=== PATIENT | male | born 1935 | race Caucasian/White ===

== ENCOUNTER 2018-02-11 19:23 | Inpatient (IN) | payer OTHER, MEDICARE ==
[~2018-02-11] VITALS: Ht 170.2 cm; Wt 90.7 kg
[~2018-02-11 19:23] MED LIST: ALLOPURINOL300 M1 PO; ASPIRIN81 M4 PO; ELIQUIS5 M1 PO; FINASTERIDE5 M1 PO; METOPROLOL TART25 M1 PO; MULTIVITAMINS1 EAC9 PO; SERTRALINE HCL50 MG PO; TAMSULOSIN HCL0.4 M1 PO; TOPROL XL50 M1 PO
--- NOTE | 2018-02-11 19:44 | ED CARDIAC/CP/PALPITATIONS ---
History of Present Illness General Chief Complaint: Chest Pain Stated Complaint: CP, SOB, TIREDNESS, TACHY? Source: patient, family, old records Exam Limitations: no limitations Vital Signs & Intake/Output Vital Signs & Intake/Output Vital Signs Date Time Temp Pulse Resp B/P B/P Pulse O2 O2 Flow FiO2 Mean Ox Delivery Rate 02/13 1354 98 96/70 02/13 1129 88 96/60 02/13 1115 88 96/60 92 Room Air ED Intake and Output 02/14 0000 02/13 1200 Intake Total 590 440 Output Total 250 3075 Balance 340 -2635 Intake, IV 30 Intake, Oral 560 440 Number 1 Bowel Movements Output, Urine 250 3075 Allergies Coded Allergies: NO KNOWN ALLERGIES (01/13/16) Reconcile Medications Allopurinol 300 MG TABLET 1 TAB PO DAILY GOUT (Reported) Apixaban (Eliquis) 5 MG TABLET 1 TAB PO BID A. Fib Diltiazem HCl (Diltiazem 12HR ER) 120 MG CAP.ER.12H 1 CAP PO DAILY HR . Finasteride 5 MG TABLET 1 TAB PO DAILY BPH (Reported) Furosemide 40 MG TABLET 1 TAB PO DAILY Diuresis . Metoprolol Succ XL (Toprol Xl) 50 MG TAB 1 TAB PO DAILY BLOOD PRESSURE ( Reported) Multiple Vitamin (Multivitamins) 1 EACH TABLET 1 TAB PO DAILY SUPPLEMENT ( Reported) Sertraline HCl 50 MG TABLET 1 TAB PO DAILY DEPRESSION (Reported) Solifenacin Succinate (Vesicare) 5 MG TABLET 1 TAB PO DAILY BLADDER (Reported ) Tamsulosin HCl 0.4 MG CAP.ER.24H 1 CAP PO DAILY BPH (Reported) Triage Note: PT FROM HOME C/O SOB AND TACHY X3-4 DAYS. PTS SON STATES THAT PT HAS BEEN COMPLAINING OF LETHARGY ,SOB, AND DECREASED SOB THE PAST FEW DAYS. PT STATED PAIN IN HIS ABD THE PAST FEW DAYS, DENIES CP, ARM NUMBNESS/TINGLING. PT HAS HX OF AFIB COMPLIANT WITH MEDICATION PER SON, PTS HR IN TRIAGE 138, 02 ON RA 93%. EKG COMPLETED, PT TO RM 7. Triage Nurses Notes Reviewed? yes HPI: 83M PMH HTN, T2DM, HLD, paroxysmal atrial fibrillation on Eliquis, brought in by son with reports of being weak, fatigued, and not quite himself for the past 3 days. At baseline, patient lives alone, cooks, takes care of himself, and drives. For the past 3 days he has been mostly sleeping and has been unable to care for himself. Son is giving most of the history. Per son, the patient is not confused but he is not himself. The patient denies any pain or discomfort. He denies fever, chills, n/v/d, chest pain, palpitations, SOB, cough, abdominal pain, diarrhea, dysuria. His HR was measured by son as 130's at home, found to be in 150's and afib here. BP stable. Past History Travel History Traveled to [place] past 21 day No Medical History Any Pertinent Medical History? see below for history Neurological: NONE Cardiovascular: AFIB, hypertension Renal: benign prost hyperplasia Psychiatric: depression Cancer(s): prostate cancer History of MRSA: No History of VRE: No History of CDIFF: No Surgical History Surgical History: non-contributory Psychosocial History Who do you live with Patient/Self Services at Home None What is your primary language [facility] Tobacco Use: Quit >30 days ago Family History Hx Contributory? No Review of Systems Review of Systems Constitutional: Reports: no symptoms. EENTM: Reports: no symptoms. Respiratory: Reports: no symptoms. Cardiovascular: Reports: no symptoms. GI: Reports: no symptoms. Genitourinary: Reports: no symptoms. Musculoskeletal: Reports: no symptoms. Skin: Reports: no symptoms. Neurological/Psychological: Reports: no symptoms. Hematologic/Endocrine: Reports: no symptoms. Immunologic/Allergic: Reports: no symptoms. All Other Systems: Reviewed and Negative Physical Exam Physical Exam General Appearance: well developed/nourished, mild distress Head: atraumatic, normal appearance Eyes: Bilateral: normal appearance. 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 No CVA/TIA Diagnosis No Sepsis Present: No Sepsis Focused Exam Completed? No Progress Differential Diagnosis: AMI, atrial fibrillation, costochondritis, musculoskeletal pain, myocarditis, pancreatitis, pericarditis, pneumonia, PUD/ GERD, PVCs/PACs, unstable angina Plan of Care: Orders Procedure Date/time Status Discontinue Nursing Interventi 02/13 1159 Active OXYGEN 02/13 UNK Complete OXYGEN DAILY CHARGE 02/13 UNK Complete Therapeutic Activities 02/13 UNK Complete Gait Training 02/13 UNK Complete Discharge Patient 02/13 UNK Active Nursing Misc 02/13 UNK Active Initial ED EKG: Rapid atrial fibrillation with ST depressions in anterolateral leads Departure Departure Disposition: STILL A PATIENT Condition: Stable Clinical Impression Primary Impression: Rapid atrial fibrillation Secondary Impressions: Delirium Referrals: Shonda MAJOR,Phyllis Sher (PCP/Family) Departure Forms: Customer Survey General Discharge Information Prescriptions: Current Visit Scripts Diltiazem HCl (Diltiazem 12HR ER) 1 CAP PO DAILY #30 CAP . Furosemide 1 TAB PO DAILY #30 TAB . Critical Care Note Critical Care Note Critical Care Time: non-applicable
[2018-02-11] MEDS ORDERED: VESICARE5 M1 PO (19:57)
[2018-02-11 20:01] LABS: ABSOLUTE BASOPHIL COUNT 0 /CUMM (0.0-0.2); ABSOLUTE EOSINOPHIL COUNT 0.1 /CUMM (0.0-0.7); ABSOLUTE GRANULOCYTE CT 10.1 /CUMM (1.4-6.5); ABSOLUTE LYMPH COUNT 1.4 /CUMM (1.2-3.4); ABSOLUTE MONOCYTE COUNT 0.7 /CUMM (0.10-0.60); BASOPHIL % 0.3 % (0.0-2.0); EOSINOPHIL % 0.5 % (0-5); GRANULOCYTE % 82.4 % (42.2-75.2); HEMATOCRIT 51.2 % (42-52); MEAN CORPUSCULAR HGB 30.6 PG (27.0-31.0); MEAN CORPUSCULAR VOLUME 92.8 FL (80.0-94.0); MEAN PLATELET VOLUME 9.1 FL (7.4-10.4); PLATELET COUNT 198 /CUMM (130-400); RBC DISTRIBUTION WIDTH 18.2 % (11.5-14.5); RED BLOOD CELL CT 5.52 /CUMM (4.70-6.10); WHITE BLOOD CELL COUNT 12.2 /CUMM (4.8-10.8)
[2018-02-11 20:09] LABS: PT 29.8 SEC (9.4-12.5); PTT 32 SEC (25-37)
--- NOTE | 2018-02-11 21:20 | RADIOLOGY REPORT ---
EXAMINATION: XR PORTABLE CHEST CLINICAL INFORMATION: Wheezing with rapid A. fib. COMPARISON: Chest radiograph 05/24/2017. TECHNIQUE: Portable frontal view of the chest was obtained. FINDINGS: There is right basilar opacity. The lungs are otherwise clear. The heart is enlarged. The pulmonary vasculature is normal. There are atherosclerotic changes of the thoracic aorta. Minimal rightward shift of the mediastinum. No acute osseous finding. IMPRESSION: Right basilar opacity which favors atelectasis given the minimal rightward mediastinal shift. Superimposed pleural effusion or pneumonia is not excluded. Mild cardiomegaly.
--- NOTE | 2018-02-11 21:40 | History & Physical ---
Jayda Alejo MD,[facility] 02/11/18 2133: General Information and HPI MD Statement: I have seen and personally examined ELEUTERIO LOVE and documented this H&P. The patient is a 83 year old M who presented with a patient stated chief complaint of [shortness of breating and fatigue]. Source of Information: patient, family, old records Exam Limitations: language barrier History of Present Illness: Patient is 83 y M with PMH of HTN, parox Afib (on Eliquise), T2DM (no medication , diet controlled), BPH, HLP, gout, arthiritis, depression presented to the ED with CC of SOB and palpitation. Patient is Trinidadian speaker, son was at the bedside contributing in history taking. Patient noted for the last 3-4 days he was feeling more fatigued and tired, even with minimal activity. He noted that this was also associated with SOB, cough and congestion but had no sputum. This is detoriation to his base line whe he is able to do ADL. He also noted swelling of bialteral LE which is new to him. He also has lower abdomen pain and distention for the last 3 days. He denied any chest pain, orthopnea, but reported poor appetite. He follows Dr. Castelan for his cardiac problems. He denied any upper respiratory tract infection, he denied sick contact. Patient was last admitted to in May 2017 for Afib with RVR, was converted spontanously to normal sinus and was discharged on Eliquis and metoprolol. Echocardiogram showed EF >60% and some diastolic dysfunction. He was completely symptomatically free after discharge. Allergies/Medications Allergies: Coded Allergies: NO KNOWN ALLERGIES (01/13/16) Past History Travel History Traveled to [place] past 21 day No Medical History Neurological: NONE Cardiovascular: AFIB, hypertension Renal: benign prost hyperplasia Psychiatric: depression Cancer(s): prostate cancer History of MRSA: No History of VRE: No History of CDIFF: No Surgical History Surgical History: non-contributory Past Family/Social History Psychosocial History Who Do You Live With? self Services at Home: None Primary Language: Greenlandic Functional Ability ADLs Independent: dressing, eating, toileting, bathing. Ambulation: independent IADLs Independent: shopping, housework, finances, food prep, telephone, transportation , medication admin. Review of Systems Review of Systems Constitutional: Reports: see HPI. Exam & Diagnostic Data Last 24 Hrs of Vital Signs/I&O Vital Signs Date Time Temp Pulse Resp B/P B/P Pulse O2 O2 Flow FiO2 Mean Ox Delivery Rate 02/12 0014 96 Nasal 2.0L Cannula 02/11 2355 97.5 84 26 112/68 96 02/11 2320 97.8 86 20 110/75 96 Nasal 1.0L Cannula 02/11 2305 94 Nasal 1.0L Cannula 02/11 2228 97.6 91 18 124/74 95 Room Air 02/11 2150 98.0 148 18 129/92 02/11 2134 98.0 148 18 129/92 91 Room Air 02/11 2025 96.2 144 18 134/99 02/11 2025 144 134/99 02/11 1933 96.2 138 18 132/88 93 Room Air Intake & Output 02/12 0800 02/12 0000 02/11 1600 Intake Total 500 Output Total 90 Balance 410 Intake, IV 500 Output, Urine 90 Patient 200 lb 201 lb Weight Weight Bed scale Reported by Patient Measurement Method Physical Exam General Appearance Alert, Oriented X3, Cooperative, No Acute Distress Skin No Significant Lesion Skin Temp/Moisture Exam: Warm/Dry Sepsis Skin Exam (color): Normal for Ethnicity HEENT Atraumatic, EOMI Neck JVD distansion Cardiovascular Normal S1, Normal S2, irreg irreg Lungs bilateral wheezing Abdomen Soft, distanded, no tenderness, no RUQ tenderness, HJR positive Extremities bilateral LE edema, 2-3 Last 24 Hrs of Labs/Cristofer: Laboratory Tests 02/11/182255: Urine Color YEL, Urine Clarity CLEAR, Urine pH 6.0, Ur Specific [place] >= 1.030 , Urine Protein TRACE H, Urine Ketones NEG, Urine Nitrite NEG, Urine Bilirubin NEG@ICTO, Urine Urobilinogen 1.0, Ur Leukocyte Esterase NEG, Ur Microscopic SEDIMENT EXAMINED, Urine RBC RARE, Urine WBC RARE, Ur Epithelial Cells RARE, Urine Bacteria RARE H, Urine Mucus RARE, Urine Hemoglobin NEG, Urine Glucose NEG 02/11/18 1949: Anion Gap 15, Estimated GFR 58 L, BUN/Creatinine Ratio 26.7 H, Glucose 188 H, Calcium 9.1, Phosphorus 4.7 H, Magnesium 1.8, Total Bilirubin 2.0 H, AST 48, ALT 73 H, Alkaline Phosphatase 137 H, Troponin I < 0.01, Qev-A-Wibpkvmjitb Pept 3560 H, Total Protein 6.0 L, Albumin 3.2 L, Globulin 2.8, Albumin/ Globulin Ratio 1.1, TSH 0.783, Free T4 1.04, PT 29.8 H, INR 2.71 H, APTT 32, D -Dimer High Sensitivty 289 H, CBC w Diff NO MAN DIFF REQ, RBC 5.52, MCV 92.8, MCH 30.6, MCHC 33.0, RDW 18.2 H, MPV 9.1, Gran % 82.4 H, Lymphocytes % 11.3 L , Monocytes % 5.5, Eosinophils % 0.5, Basophils % 0.3, Absolute Granulocytes 10.1 H, Absolute Lymphocytes 1.4, Absolute Monocytes 0.7 H, Absolute Eosinophils 0.1, Absolute Basophils 0 Microbiology 02/12 55 BLOOD: Blood Culture - ORD 02/12 55 BLOOD: Blood Culture - ORD 02/12 54 LOWER RESP: Respiratory Culture - ORD 02/12 54 LOWER RESP: Gram Stain - ORD 02/12 2256 URINE ROUT: Urine Culture - RECD 02/11 2209 UPPER RESP: Surveillance Culture - ORD 02/11 2209 GI: Surveillance Culture - ORD Assessment/Plan Assessment: Patient is 82 y M presented with SOB, weakness Palpitation, increased LE swelling PMH of HTN, parox Afib (on Eliquise), T2DM (no medication, diet controlled), BPH , HLP, gout, arthiritis, depression presented to the ED with CC of SOB and palpitation. VS, Ph Ex at admission: Pulse rate 138, no fever, BP 134/99, saturating fairly in room temperature EKG: afib Labs at admission: WBC 12.2, Hgb 16.9 Bicarbonate 19, creatinine 1.2, BUN 32, BUN/creatinine ratio 26.7, total bilirubin 2, ALT 73, alkaline phosphatase 137, INR 2.7 UA pending Imagings at admission: Chest x-ray: Right basilar opacity which favors atelectasis given the minimal rightward mediastinal shift. Superimposed pleural effusion or pneumonia is not excluded. Mild cardiomegaly. Abd CT: 1. Equivocal mural indistinctness of a distended gallbladder without discrete gallstones demonstrated. Consider correlation with ultrasound to evaluate for early cholecystitis. This is a borderline finding. 2. No biliary ductal dilatation. 3. Moderate right and small left pleural effusions. Adjacent basilar atelectasis. 4. Small volume of ascites. 5. A few hypodense hepatic lesions, the largest of which is consistent with a hepatic cyst. 6. Tiny punctate nonobstructing calculus in the lower pole of the left kidney. A large simple cyst extends from the left [id number] kidney. 7. Diverticulosis without evidence of diverticulitis. 8. Other findings as above. 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 Atrial fibrillation with RVR Core Measures/Misc (05/21) Acute Coronary Syndrome ACS Diagnosis: No Congestive Heart Failure Congestive Heart Failure Diagnosis Yes (af related) Last Known EF % 60 Cerebrovascular Accident CVA/TIA Diagnosis: No VTE (View Protocol) VTE Risk Factors Age>40 No Mechanical VTE Prophylaxis d/t N/A MechProphylax Ordered No VTE Pharm Prophylaxis d/t NA PharmProphylax ordered Sepsis (View protocol) Sepsis Present: No If YES complete Sepsis Event Note If YES complete Sepsis Event Note Fritz Potts 02/11/18 5332: General Information and HPI Allergies/Medications Home Med list Allopurinol 300 MG TABLET 1 TAB PO DAILY GOUT (Reported) Apixaban (Eliquis) 5 MG TABLET 1 TAB PO BID A. Fib Diltiazem HCl (Diltiazem 12HR ER) 120 MG CAP.ER.12H 1 CAP PO DAILY HR . Finasteride 5 MG TABLET 1 TAB PO DAILY BPH (Reported) Furosemide 40 MG TABLET 1 TAB PO DAILY Diuresis . Metoprolol Succ XL (Toprol Xl) 50 MG TAB 1 TAB PO DAILY BLOOD PRESSURE ( Reported) Multiple Vitamin (Multivitamins) 1 EACH TABLET 1 TAB PO DAILY SUPPLEMENT ( Reported) Sertraline HCl 50 MG TABLET 1 TAB PO DAILY DEPRESSION (Reported) Solifenacin Succinate (Vesicare) 5 MG TABLET 1 TAB PO DAILY BLADDER (Reported ) Tamsulosin HCl 0.4 MG CAP.ER.24H 1 CAP PO DAILY BPH (Reported) Core Measures/Misc (05/21) Sepsis (View protocol) If YES complete Sepsis Event Note If YES complete Sepsis Event Note Resident Review Statement Resident Statement: examined this patient, discussed with technology internship, agreed with technology internship Other Findings: Mr. Love is a 83-year-old male with past medical history of hypertension, type 2 diabetes mellitus, hyperlipidemia, paroxysmal atrial fibrillation on Eliquis, BPH, depression, gout,previous history of prostate cancer is brought in by son with reports of being weak, fatigued and not quite himself for 3 days prior to presentation. At baseline patient lives alone, cooks and takes cares of himself and drives. Apparently for last 3 days he has mostly been sleeping, lethargic and unable to take care of himself. As per the son, he doesn't seem to be himself. His heart rate as measured at home was in 130s and also at times in 150s. Heart rate has been running high in the 130s to 140s for last 3-4 days. Patient's son was at bedside and was contributing to history taking, as Mr. Rodriguez only converses in uruguayan. It seems that lately since last few days he had been very tired, and was having worsening shortness of breath even when doing small work like tying his shoes. He has also noted recent bilateral leg swelling, which is relatively new, has never happened before. He also feels mild vague abdominal pain and feels that his abdomen has been much more distended for past 3 days. He also endorses some increased coughing along with sputum production which is white in color. He quit smoking long ago in 1965, was a social drinker however does not drink alcohol anymore. vitals on presentation is temperature was 96.2, pulse was 144, respiration of 18 , blood pressure of 134/99, he was saturating 93% on room air. Home meds : he has been taking allopurinol 300 mg once daily, Eliquis 500 mg 1 tablet twice a day, finasteride 5 mg once daily, metoprolol XL 50 mg once daily, multivitamin once daily, sertraline 50 mg once daily, Vesicare 5 mg once daily, tamsulosin 0.4 mg once daily. Relevant labs white count of 12.2, H/H of 16.9/51.2, platelet of 198. PT of 29.8, INR of 2.71, d-dimer of 289. Sodium of 141, potassium of 4.7, anion gap of 15, bicarbonate of 19, BUN/ creatinine of 32/1.2 (line creatinine 1.0) mod total bilirubin of 2.0, ALT of 73 , AST of 48, alkaline phosphatase of 137. Total protein of 6.0, albumin of 3.2. First set of troponin negative at less than 0.01. Chest X-ray showed right basilar opacity, favoring atelectasis with minimal rightward mediastinal shift, there might be a superimposed pleural effusion or pneumonia, mild cardiomegaly present. CT abdomen and pelvis showed a few scattered hypodense hepatic lesions, distended gallbladder with questionable mural indistinctness, with no biliary ductal dilation or gallstones, small volume of ascites, moderate light and small left pleural effusion. Large simple cyst extending from the left mid to lower kidney. EKG showed atrial fibrillation with a rate of 159, QTC of 489, T-wave inversion in V4, V5, V1 present on the previous EKG. His last admission was in May 2017, was treated for paroxysmal atrial fibrillation with RVR and was discharged on Eliquis 5 mg twice daily. His last echocardiogram was 05/24/2017 with moderate concentric left ventricular hypertrophy, left ventricular EF greater than 60%, restrictive left ventricular inflow pattern consistent with diastolic dysfunction. Problem list along with assessment and plan 1. Atrial fibrillation with rapid ventricular rate * Continue to monitor on telemetry, we will start Cardizem 30 every 6 for now, continue anticoagulation with Eliquis, previous echo was in May 2017, repeat echo per cardiology, cardiology consult in a.m., patient is on metoprolol XL 50 mg daily, will continue metoprolol from a.m., further determine the need for Cardizem depending on heart rate with target heart rate less than 100. #2 Heart failure with preserved EF. * Continue to monitor intake and output, continue daily weight checks, Place Foleys, patient received 1 time of IV 40 mg Lasix, has bilateral lower extremity edema (new), will continue 40 mg IV Lasix twice daily for now, consider repeating echo especially after newer symptoms of lower extremity edema up to the lower abdomen, continue to monitor electrolytes while on Lasix, repeat as needed. #3 Elevated ALT, elevated bilirubin and alkaline phosphatase. * CT abdomen and pelvis showed distended gallbladder, however there was no evidence of acute inflammation, gall stones,continue to repeat LFTs in the morning, check INR, obtain ultrasound of the right upper quadrant in am. #4 History of gout. * Continue allopurinol 30 mg daily. #5 History of BPH. * Continue finasteride 5 mg daily, continue tamsulosin 0.4 mg daily, continue Vesicare 5 mg daily. #6 Depression. * Continue sertraline 50 mg daily. #7 DM-2 * diet controlled, last hba1c 6.4 * ct to monitor FS Patient is full code. CHF diet. DVT prophylaxis with Eliquis. Pain management with Tylenol. Chito MAJOR, [facility] 02/11/18 2212: Core Measures/Misc (05/21) Sepsis (View protocol) If YES complete Sepsis Event Note If YES complete Sepsis Event Note Attending MD Review Statement Attending Statement Attending MD Statement: examined this patient, discuss w/resident/PA/VARNISH REMOVER, agreed w/resident/PA/VARNISH REMOVER, discussed with family, reviewed images, amended to note Attending Assessment/Plan: 83 yo primarily Trinidadian speaking male with h/o paroxysmal Afib (diagnosed May 2017) on Eliquis, HTN, diet controlled diabetes, gout, depression, is brought in for 3-day h/o increasing fatigue, weakness and exertional dyspnea. Patient lives alone, is independent with daily activities, cooks and drives as well. However, for the past 3 days he has been feeling 'winded' with minimal exertion like wearing his clothes or tieing his shoe lace. He reports a mild cough with clear to white phlegm, but denies chest pain, palpitations, fever or chills. He c/o lower abdominal discomfort but no nausea, vomiting, diarhea, constipation or urinary symptoms. Son reports that patient is forgetful but not really confused. When son checked patient's HR it was in the 130's so he brought him to the hospital. Vitals: afebrile, HR 140-150's, BP 134/99, sats 90% RA --> 95% on 2L. Exam: AAO, in moderate respiratory distress, moist oral mucosa, JVD++, Chest b/l reduced air entry with basilar crackles and wheeze noted, Heart S1S2 irregularly irregular, Abd soft, distended, non tender, LE: 3+++ pitting edema, pulses felt. Labs: WBC 12.2, Plt 198, INR 2.71, D-dimer 289, bicarb 19, BUN 32, Creat 1.2, glucose 188, T. Bili 2.0, AST 48, ALT 73, Alk phos 137, trop neg, proBNP 3560, TSH and free T4 normal. UA clear. CXR: right basilar opacity which favors atelectasis, superimposed pleural effusion or pneumonia not excluded. CT abd/pelvis: moderate right and small left pleural effusions, with basilar atelectasis, equivocal mural indistinctiveness of distended gallbladder without gallstones, small volume of ascites, hepatic cysts, nonbostructive renal caluclus. EKG: atrial fibrillation @ 159, LAD, TWI in I, aVL, V4-6 (new), Qtc 489. Echo (2017): EF > 60%, restrictive left ventricular inflow pattern consistent with diastolic dysfunction, moderate concentric LVH. Patient received IV metoprolol after which HR dropped only transiently and went back up to 140's. Loading dose of verapamil was given with HR dropping down to 80-100's. Plan was to initiate verapamil drip but this was not required as patient stayed in high 80's thereafter, so patient was admitted to Telemetry instead. Assessment and plan: 1. Atrial fribrillation with rapid ventricular response 2. Acute decompensated congestive heart failure (diastolic vs systolic) 3. Rate related EKG changes TWI in lateral leads 4. Essential hypertension 5. Abnormal LFTs possibly 2/2 congestive hepatopathy, however we should rule out GB disease given CT e/o GB distension 6. Leukocytosis -reactive - Admit to Telemetry - Watch for arrhythmias - Strict I/O's, daily weights - IV lasix 40 BID - Obtain echo cardiogram - Serial EKG and troponin to rule out ACS - Cardio consult (Dr. Castelan) - Initiate cardizem 30 Q8 white monitoring HR and uptitrate based on HR - Resume metoprolol XL in AM - Fractionate the bilirubin - Obtain RUQ ultrasound in AM to rule out GB disease - Trend LFTs - Resume home meds eliquis, allopurinol, finastaride, sertraline, vesicare and flomax. - PT eval, possible need for STR DVT ppx Eliquis. Full code.
--- NOTE | 2018-02-11 22:12 | CT SCAN REPORT ---
EXAMINATION: CT ABDOMEN AND PELVIS WITHOUT CONTRAST CLINICAL INFORMATION: Altered mental status. Elevated bilirubins and LFTs. COMPARISON: None TECHNIQUE: Multidetector volumetric imaging was performed from the superior aspect of the liver through the pubic symphysis. Sagittal and coronal reformatted images were obtained on the technologist's workstation. DLP: 1138 mGy-cm FINDINGS: LUNG BASES: Moderate right and small left pleural effusions with adjacent basilar atelectasis. PERITONEAL CAVITY: Small volume of ascites. LIVER, GALLBLADDER, AND BILIARY TREE: There are a few scattered hypodense hepatic lesions, including a lobulated 3.9 cm lesion within the superior aspect of segments 8 and 4, favored to represent cysts. No convincing suspicious hepatic mass lesion. No significant biliary ductal dilatation. The gallbladder is distended, with questionable mural indistinctness. No discrete gallstones demonstrated. PANCREAS: Unremarkable. SPLEEN: Unremarkable. ADRENAL GLANDS: Unremarkable. KIDNEYS AND URETERS: There is a 13.7 cm cyst without suspicious features off of the left kidney. No hydronephrosis. There is a tiny punctate calculus in the lower pole of the left kidney. No other renal or ureteral calculi. BLADDER: Partially distended bladder without focal abnormality. GASTROINTESTINAL TRACT: Bowel gas pattern is nonobstructive. No evidence of acute bowel inflammation. There is colonic diverticulosis without evidence of diverticulitis. The appendix is unremarkable. ABDOMINAL WALL: No significant hernia is appreciated. LYMPH NODES: No bulky adenopathy demonstrated. VASCULAR: Scattered atherosclerotic disease including coronary artery calcification. PELVIC VISCERA: Ascites tracks into the pelvis. No significant prostatomegaly. Seminal vesicles are unremarkable. OSSEOUS STRUCTURES: No acute osseous abnormalities. Multilevel degenerative changes of the spine. IMPRESSION: 1. Equivocal mural indistinctness of a distended gallbladder without discrete gallstones demonstrated. Consider correlation with ultrasound to evaluate for early cholecystitis. This is a borderline finding. 2. No biliary ductal dilatation. 3. Moderate right and small left pleural effusions. Adjacent basilar atelectasis. 4. Small volume of ascites. 5. A few hypodense hepatic lesions, the largest of which is consistent with a hepatic cyst. 6. Tiny punctate nonobstructing calculus in the lower pole of the left kidney. A large simple cyst extends from the left [id number]-[id number] kidney. 7. Diverticulosis without evidence of diverticulitis. 8. Other findings as above.
--- NOTE | 2018-02-11 22:14 | Admission Certification ---
Admission Certification Certification Statement - As attending physician, I certify that at the time of - admission, based on clinical presentation, severity of - symptoms, need for further diagnostic testing and - therapeutic interventions, and risk of adverse outcomes - without in-hospital treatment, in my clinical assessment, - this patient requires an acute hospital stay for a minimum - of two nights or longer. I have also considered psychsocial - factors such as support system, advanced age, financial - issues, cognitive issues, and failed out-patient treatments, - past re-admission history, safety of patient, and lack of - compliance as applicable. Specific rationale supporting this admission is: Atrial fibrillation with rapid ventricular response, aucte decompensated congestive heart failure.
[2018-02-11 23:55] VITALS: BP 112/68
[2018-02-12 07:02] VITALS: BP 124/80
--- NOTE | 2018-02-12 07:58 | PN- Housestaff ---
See Addendum Subjective Follow-up For: Atrial fibrillation with RVR, tachycardia induced cardiomyopathy Tele-Events Since Last Visit: Atrial fibrillation, [address] Subjective: No overnight events. Patient says he feels better with no chest pain or shortness of breath. He has no pain. No other complaints. Review of Systems Constitutional: Reports: no symptoms. EENTM: Reports: no symptoms. Cardiovascular: Reports: no symptoms. Respiratory: Reports: no symptoms. Gastrointestinal: Reports: no symptoms. Genitourinary: Reports: no symptoms. Musculoskeletal: Reports: no symptoms. Skin: Reports: no symptoms. Neurological/Psychological: Reports: no symptoms. Hematologic/Endocrine: Reports: no symptoms. Immunologic/Allergic: Reports: no symptoms. Objective Last 24 Hrs of Vital Signs/I&O Vital Signs Date Time Temp Pulse Resp B/P B/P Pulse O2 O2 Flow FiO2 Mean Ox Delivery Rate 02/12 0702 97.4 88 24 124/80 94 Nasal Cannula 02/12 0601 103 120/85 02/12 0101 95 Nasal 2.0L Cannula 02/12 0014 96 Nasal 2.0L Cannula 02/11 2355 97.5 84 26 112/68 96 02/11 2320 97.8 86 20 110/75 96 Nasal 1.0L Cannula 02/11 2305 94 Nasal 1.0L Cannula 02/11 2228 97.6 91 18 124/74 95 Room Air 02/11 2150 98.0 148 18 129/92 02/11 2134 98.0 148 18 129/92 91 Room Air 02/11 202 96.2 144 18 134/99 02/11 202 144 134/99 02/11 1933 96.2 138 18 132/88 93 Room Air Intake & Output 02/12 0800 02/12 0000 02/11 1600 Intake Total 500 Output Total 1700 90 Balance -1700 410 Intake, IV 500 Output, Urine 1700 90 Patient 90.718 kg 91.2 kg Weight Weight Bed scale Reported by Patient Measurement Method Physical Exam General Appearance: Alert, Oriented X3, Cooperative, No Acute Distress Cardiovascular: irregular Lungs: Clear to Auscultation Abdomen: Normal Bowel Sounds, Soft, No Tenderness Extremities: 2+ pitting edema Current Medications: Current Medications Sig/John Start time Last Medication Dose Route Stop Time Status Admin Allopurinol 300 MG DAILY 02/12 09 AC PO Apixaban 5 MG BID 02/12 900 AC PO Apixaban 5 MG BID 02/12 0057 DC PO Diltiazem HCl 30 MG Q8 02/12 600 AC 02/12 PO 0601 Diltiazem HCl 30 MG Q6 02/12 0300 DC PO Finasteride 5 MG DAILY 02/12 900 AC PO Furosemide 40 MG 7:30 AM, & 4:30 PM 02/12 07 AC IV Furosemide 0 .STK-MED ONE 02/11 224 DC IV Furosemide 40 MG ONCE ONE 02/11 2215 DC 02/11 IV 02/12 2216 2304 Metoprolol Succinate 50 MG DAILY 02/12 900 AC PO Metoprolol Tartrate 0 .STK-MED ONE 02/11 2019 DC IV Metoprolol Tartrate 5 MG ONCE ONE 02/11 1945 DC 02/11 IV 02/11 Multivitamins 1 TAB DAILY 02/12 900 AC PO Oxybutynin Chloride 5 MG DAILY 02/12 900 AC PO Sertraline HCl 50 MG DAILY 02/12 900 AC PO Sodium Chloride 500 ML BOLUS ONE 02/11 1945 DC 02/11 IV 02/11 Tamsulosin HCl 0.4 MG DAILY 02/12 900 AC PO Verapamil HCl 50 MG CONTINOUS INFUSION 02/11 223 DC Sodium Chloride 80 ML IV Verapamil HCl 5 MG ONE ONE 02/11 2100 DC 02/11 IV 02/11 2101 2150 Last 24 Hrs of Lab/Cristofer Results Last 24 Hrs of Labs/Mics: Laboratory Tests 02/12/18 0130: Troponin I < 0.01 02/11/18 2256: Urine Color YEL, Urine Clarity CLEAR, Urine pH 6.0, Ur Specific [place] >= 1.030 , Urine Protein TRACE H, Urine Ketones NEG, Urine Nitrite NEG, Urine Bilirubin NEG@ICTO, Urine Urobilinogen 1.0, Ur Leukocyte Esterase NEG, Ur Microscopic SEDIMENT EXAMINED, Urine RBC RARE, Urine WBC RARE, Ur Epithelial Cells RARE, Urine Bacteria RARE H, Urine Mucus RARE, Urine Hemoglobin NEG, Urine Glucose NEG 02/11/181948: Anion Gap 15, Estimated GFR 58 L, BUN/Creatinine Ratio 26.7 H, Glucose 188 H, Calcium 9.1, Phosphorus 4.7 H, Magnesium 1.8, Total Bilirubin 2.0 H, Direct Bilirubin 0.7 H, AST 48, ALT 73 H, Alkaline Phosphatase 137 H, Troponin I < 0.01, Gji-E-Gqfwghflmyd Pept 3560 H, Total Protein 6.0 L, Albumin 3.2 L, Globulin 2.8, Albumin/Globulin Ratio 1.1, TSH 0.783, Free T4 1.04, PT 29.8 H, INR 2.71 H, APTT 32, D-Dimer High Sensitivty 289 H, CBC w Diff NO MAN DIFF REQ , RBC 5.52, MCV 92.8, MCH 30.6, MCHC 33.0, RDW 18.2 H, MPV 9.1, Gran % 82.4 H, Lymphocytes % 11.3 L, Monocytes % 5.5, Eosinophils % 0.5, Basophils % 0.3, Absolute Granulocytes 10.1 H, Absolute Lymphocytes 1.4, Absolute Monocytes 0.7 H, Absolute Eosinophils 0.1, Absolute Basophils 0 Microbiology 02/12 0200 BLOOD: Blood Culture - RECD 02/12 0130 BLOOD: Blood Culture - RECD 02/124 LOWER RESP: Respiratory Culture - COLB 02/12 54 LOWER RESP: Gram Stain - COLB 02/12 2256 URINE ROUT: Urine Culture - RECD 02/11 2209 UPPER RESP: Surveillance Culture - CAN Cancelled: Cancelled via OE: Per MD Decision 02/11 2209 GI: Surveillance Culture - CAN Cancelled: Cancelled via OE: Per MD Decision Assessment/Plan Assessment: Mr. Quinones is a 83 yo primarily [place]ian speaking male with h/o paroxysmal Afib ( diagnosed May 2017) on Eliquis, HTN, diet controlled diabetes, gout, depression , is brought in for 3-day h/o increasing fatigue, weakness and exertional dyspnea. Problem list: 1. Possible lobar pneumonia 2. Atrial fibrillation with rapid ventricular rate 3. Tachycardia induced cardiomyopathy 4. Transaminitis #Possible lobar pneumonia: Patient presented with shortness of breath in the setting of leukocytosis, hypothermia, and chest x-ray showing right lower lobe opacity possibly consistent with community-acquired pneumonia. -Consider starting ceftriaxone and azithromycin -Cultures -Strep and Legionella antigens #Atrial fibrillation with rapid ventricular rate/Tachycardia induced cardiomyopathy: Patient presented with atrial fibrillation and rapid ventricular rate. Rates are now 80-100, better controlled. -Continue diltiazem 30 mg every 8 hours -Continue metoprolol 50 mg daily -Cardiology recommendations appreciated -TTE -Daily weights, strict I's and O's -Consider further diuresis #Transaminitis: Patient presented with elevated alkaline phosphatase and bilirubin and CT abdomen/pelvis shows questionable cholecystitis. He does not have abdominal pain though. -Ultrasound abdomen -Trend LFTs -N.p.o. pending ultrasound #Chronic medical problems: -Continue other home medications DVT prophylaxis with apixaban N.p.o. pending ultrasound, then CHF diet Full code Problem List: 1. Rapid atrial fibrillation Pain Ratin Pain Location: no Pain Goal: Remain pain free Pain Plan: see a/p Tomorrow's Labs & Rationales: cbc, bep
[2018-02-12 10:02] LABS: ABSOLUTE BASOPHIL COUNT 0 /CUMM (0.0-0.2); ABSOLUTE EOSINOPHIL COUNT 0.1 /CUMM (0.0-0.7); ABSOLUTE GRANULOCYTE CT 10.3 /CUMM (1.4-6.5); ABSOLUTE LYMPH COUNT 1.7 /CUMM (1.2-3.4); ABSOLUTE MONOCYTE COUNT 0.8 /CUMM (0.10-0.60); BASOPHIL % 0.2 % (0.0-2.0); EOSINOPHIL % 0.7 % (0-5); GRANULOCYTE % 79.7 % (42.2-75.2); HEMATOCRIT 50.6 % (42-52); MEAN CORPUSCULAR HGB 30.3 PG (27.0-31.0); MEAN CORPUSCULAR HGB CONC 32.5 G/DL (33.0-37.0); MEAN CORPUSCULAR VOLUME 93.2 FL (80.0-94.0); MEAN PLATELET VOLUME 9.2 FL (7.4-10.4); PLATELET COUNT 183 /CUMM (130-400); RBC DISTRIBUTION WIDTH 18.2 % (11.5-14.5); RED BLOOD CELL CT 5.44 /CUMM (4.70-6.10); WHITE BLOOD CELL COUNT 12.9 /CUMM (4.8-10.8)
--- NOTE | 2018-02-12 10:48 | Cons- Cardiology ---
General Information and HPI Consulting Request Requested By: Lauren Lucas MD Reason for Consult: Atrial fibrillation with a rapid ventricular response. Source of Information: patient, old records Exam Limitations: language barrier History of Present Illness: Mr. Michael Quinones is an 83-year-old male of [place]kin[place] descent with a history of depression, remote tobacco use, hypertension, left ventricular hypertrophy with diastolic dysfunction, diabetes mellitus, gout, benign prostatic hypertrophy, and paroxysmal atrial fibrillation who presented to the ED yesterday, 02/11/2018, with a 3-4 day complaint of shortness of breath, fatigue, and palpitations, as well as, associated abdominal discomfort and was again found to be in atrial fibrillation with a rapid ventricular response, despite adherence to his outpatient medical regimen, according to his son. He was last hospitalized here 05/24-05/26/2017 with "new onset" atrial fibrillation and a rapid ventricular response and spontaneously converted back to sinus rhythm. We have followed up with him on an outpatient basis and have not discovered any further atrial fibrillation since his last hospitalization. At present, he is without complaints and specifically denies any chest discomfort, palpitations, shortness of breath, etc. Allergies/Medications Allergies: Coded Allergies: NO KNOWN ALLERGIES (01/13/16) Home Med List: Allopurinol 300 MG TABLET 1 TAB PO DAILY GOUT (Reported) Apixaban (Eliquis) 5 MG TABLET 1 TAB PO BID A. Fib Finasteride 5 MG TABLET 1 TAB PO DAILY BPH (Reported) Metoprolol Succ XL (Toprol Xl) 50 MG TAB 1 TAB PO DAILY BLOOD PRESSURE ( Reported) Multiple Vitamin (Multivitamins) 1 EACH TABLET 1 TAB PO DAILY SUPPLEMENT ( Reported) Sertraline HCl 50 MG TABLET 1 TAB PO DAILY DEPRESSION (Reported) Solifenacin Succinate (Vesicare) 5 MG TABLET 1 TAB PO DAILY BLADDER (Reported ) Tamsulosin HCl 0.4 MG CAP.ER.24H 1 CAP PO DAILY BPH (Reported) Review of Systems Review of Systems: A 14 point system review was obtained was noncontributory, other than as above. Past History Travel History Traveled to [place] past 21 day No Medical History Blood Transfusion Hx: No Neurological: NONE Cardiovascular: AFIB, hypertension Renal: benign prost hyperplasia Psychiatric: depression Cancer(s): prostate cancer Surgical History Surgical History: non-contributory Psychosocial History Where Do You Live? Home Who Do You Live With? self Services at Home: None Primary Language: Burkinan Smoking Status: Never Smoked Functional Ability ADLs Independent: dressing, eating, toileting, bathing. Ambulation: independent IADLs Independent: shopping, housework, finances, food prep, telephone, transportation , medication admin. Exam & Diagnostic Data Vital Signs and I&O Vital Signs Date Time Temp Pulse Resp B/P B/P Pulse O2 O2 Flow FiO2 Mean Ox Delivery Rate 02/12 08 94 Nasal 2.0L Cannula 02/12 0702 97.4 88 24 124/80 94 Nasal Cannula 02/12 0601 103 120/85 02/12 0101 95 Nasal 2.0L Cannula 02/12 0014 96 Nasal 2.0L Cannula 02/11 2355 97.5 84 26 112/68 96 02/11 2320 97.8 86 20 110/75 96 Nasal 1.0L Cannula 02/11 2305 94 Nasal 1.0L Cannula 02/11 2228 97.6 91 18 124/74 95 Room Air 02/11 2150 98.0 148 18 129/92 02/11 2134 98.0 148 18 129/92 91 Room Air 02/11 2025 96.2 144 18 134/99 02/11 202 144 134/99 02/11 1933 96.2 138 18 132/88 93 Room Air Intake & Output 02/12 1600 02/12 0800 02/12 0000 02/11 1600 02/11 0800 02/11 0000 Intake Total 500 Output Total 1700 90 Balance -1700 410 Intake, IV 500 Output, Urine 1700 90 Patient 200 lb 201 lb Weight Weight Bed scale Reported by Patient Measurement Method Physical Exam: Well-developed, overweight elderly male in no acute distress with nasal oxygen in place. Vital signs: See above. HEENT: Normocephalic, atraumatic, EOMI, slightly dry mucous membranes. Neck: No JVD, no bruits. Lungs: Clear to auscultation. Heart: S1, S2, irregularly, irregular with a grade 1/6 systolic murmur. No gallop or rub appreciated. PMI not well felt. Abdomen: Soft, nontender, positive bowel sounds. Extremities: 1-2+ lateral lower extremity edema. Labs/Cristofer Results: Laboratory Tests 02/12 02/12 02/12 0915 0630 0130 Chemistry Sodium (137 - 145 mmol/L) 142 Potassium (3.5 - 5.1 mmol/L) 4.3 Chloride (98 - 107 mmol/L) 107 Carbon Dioxide (22 - 30 mmol/L) 22 Anion Gap (5 - 16) 13 BUN (9 - 20 mg/dL) 29 H Creatinine (0.7 - 1.2 mg/dL) 1.2 Estimated GFR (>60 ml/min) 58 L Glucose (65 - 99 mg/dL) 120 H Calcium (8.4 - 10.2 mg/dL) 8.9 Phosphorus (2.5 - 4.5 mg/dL) 5.0 H Magnesium (1.6 - 2.3 mg/dL) 1.7 Total Bilirubin (0.2 - 1.3 mg/dL) 1.5 H AST (17 - 59 U/L) 40 ALT (21 - 72 U/L) 71 Troponin I (<0.11 ng/ml) < 0.01 Cancelled < 0.01 Albumin (3.5 - 5.0 g/dL) 3.0 L Hematology CBC w Diff NO MAN DIFF REQ WBC (4.8 - 10.8 /CUMM) 12.9 H RBC (4.70 - 6.10 /CUMM) 5.44 Hgb (14.0 - 18.0 G/DL) 16.4 Hct (42 - 52 %) 50.6 MCV (80.0 - 94.0 FL) 93.2 MCH (27.0 - 31.0 PG) 30.3 MCHC (33.0 - 37.0 G/DL) 32.5 L RDW (11.5 - 14.5 %) 18.2 H Plt Count (130 - 400 /CUMM) 183 MPV (7.4 - 10.4 FL) 9.2 Gran % (42.2 - 75.2 %) 79.7 H Lymphocytes % (20.5 - 51.1 %) 13.3 L Monocytes % (1.7 - 9.3 %) 6.1 Eosinophils % (0 - 5 %) 0.7 Basophils % (0.0 - 2.0 %) 0.2 Absolute Granulocytes (1.4 - 6.5 /CUMM) 10.3 H Absolute Lymphocytes (1.2 - 3.4 /CUMM) 1.7 Absolute Monocytes (0.10 - 0.60 /CUMM) 0.8 H Absolute Eosinophils (0.0 - 0.7 /CUMM) 0.1 Absolute Basophils (0.0 - 0.2 /CUMM) 0 02/11 02/11 5600 4084 Chemistry Sodium (137 - 145 mmol/L) 141 Potassium (3.5 - 5.1 mmol/L) 4.7 Chloride (98 - 107 mmol/L) 107 Carbon Dioxide (22 - 30 mmol/L) 19 L Anion Gap (5 - 16) 15 BUN (9 - 20 mg/dL) 32 H Creatinine (0.7 - 1.2 mg/dL) 1.2 Estimated GFR (>60 ml/min) 58 L BUN/Creatinine Ratio (7 - 25 %) 26.7 H Glucose (65 - 99 mg/dL) 188 H Calcium (8.4 - 10.2 mg/dL) 9.1 Phosphorus (2.5 - 4.5 mg/dL) 4.7 H Magnesium (1.6 - 2.3 mg/dL) 1.8 Total Bilirubin (0.2 - 1.3 mg/dL) 2.0 H Direct Bilirubin (< 0.4 mg/dL) 0.7 H AST (17 - 59 U/L) 48 ALT (21 - 72 U/L) 73 H Alkaline Phosphatase (< 127 U/L) 137 H Troponin I (<0.11 ng/ml) < 0.01 Iwt-P-Lsqniytjbcb Pept (<125 pg/mL) 3560 H Total Protein (6.3 - 8.2 g/dL) 6.0 L Albumin (3.5 - 5.0 g/dL) 3.2 L Globulin (1.9 - 4.2 gm/dL) 2.8 Albumin/Globulin Ratio (1.1 - 2.2 %) 1.1 TSH (0.270 - 4.200 uIU/mL) 0.783 Free T4 (0.85 - 1.93 ng/dL) 1.04 Coagulation PT (9.4 - 12.5 SEC) 29.8 H INR (0.90 - 1.17) 2.71 H APTT (25 - 37 SEC) 32 D-Dimer High Sensitivty (0 - 243 ng/ml) 289 H Hematology CBC w Diff NO MAN DIFF REQ WBC (4.8 - 10.8 /CUMM) 12.2 H RBC (4.70 - 6.10 /CUMM) 5.52 Hgb (14.0 - 18.0 G/DL) 16.9 Hct (42 - 52 %) 51.2 MCV (80.0 - 94.0 FL) 92.8 MCH (27.0 - 31.0 PG) 30.6 MCHC (33.0 - 37.0 G/DL) 33.0 RDW (11.5 - 14.5 %) 18.2 H Plt Count (130 - 400 /CUMM) 198 MPV (7.4 - 10.4 FL) 9.1 Gran % (42.2 - 75.2 %) 82.4 H Lymphocytes % (20.5 - 51.1 %) 11.3 L Monocytes % (1.7 - 9.3 %) 5.5 Eosinophils % (0 - 5 %) 0.5 Basophils % (0.0 - 2.0 %) 0.3 Absolute Granulocytes (1.4 - 6.5 /CUMM) 10.1 H Absolute Lymphocytes (1.2 - 3.4 /CUMM) 1.4 Absolute Monocytes (0.10 - 0.60 /CUMM) 0.7 H Absolute Eosinophils (0.0 - 0.7 /CUMM) 0.1 Absolute Basophils (0.0 - 0.2 /CUMM) 0 Urines Urine Color (YEL,AMB,STR) YEL Urine Clarity (CLEAR) CLEAR Urine pH (5.0 - 8.0) 6.0 Ur Specific [place] (1.001 - 1.035) >= 1.030 Urine Protein (NEG,<30 MG/DL) TRACE H Urine Ketones (NEG) NEG Urine Nitrite (NEG) NEG Urine Bilirubin (NEG) NEG@ICTO Urine Urobilinogen (0.1 - 1.0 EU/dl) 1.0 Ur Leukocyte Esterase (NEG) NEG Ur Microscopic SEDIMENT EXAMINED Urine RBC (0 - 5 /HPF) RARE Urine WBC (0 - 2 /HPF) RARE Ur Epithelial Cells (NONE,FEW) RARE Urine Bacteria (NEG/NONE) RARE H Urine Mucus (FEW,NONE) RARE Urine Hemoglobin (NEG) NEG Urine Glucose (N MG/DL) NEG Diagnostic Data EKG Results 02/12/2018: Atrial fibrillation with a normal mean ventricular response, low frontal lead voltage, abnormal precordial R-wave progression leads V1-V2, and anterolateral nondiagnostic T-wave abnormalities, cannot exclude ischemia. Slower rate went compared to previous tracing from 02/11/2018. CXR Results 02/11/2018: Right basilar opacity which favors atelectasis given the minimal rightward mediastinal shift. Superimposed pleural effusion or pneumonia is not excluded. Mild cardiomegaly. Other Results CT abdomen/pelvis 02/11/2018: 1. Equivocal mural indistinctness of a distended gallbladder without discrete gallstones demonstrated. Consider correlation with ultrasound to evaluate for early cholecystitis. This is a borderline finding. 2. No biliary ductal dilatation. 3. Moderate right and small left pleural effusions. Adjacent basilar atelectasis. 4. Small volume of ascites. 5. A few hypodense hepatic lesions, the largest of which is consistent with a hepatic cyst. 6. Tiny punctate nonobstructing calculus in the lower pole of the left kidney. A large simple cyst extends from the left hfj-ry-qhwel kidney. 7. Diverticulosis without evidence of diverticulitis. 8. Other findings as above. Echocardiogram 05/24/2017: 1. Normal size left ventricle. Moderate concentric left ventricular hypertrophy. No obvious regional wall motion abnormalities. Normal left ventricular ejection fraction visually estimated at >60%. Restrictive left ventricular inflow pattern consistent with diastolic dysfunction. 2. Mild right ventricular dilatation. 3. Mild atrial dilatation. 4. Mild mitral regurgitation. Mild aortic regurgitation. Mild tricuspid regurgitation. Right ventricular systolic pressure estimated at 31 mmHg. Mild pulmonic regurgitation. 5. Mildly dilated ascending aorta. Dilated inferior vena cava. Assessment/Plan Assessment/Plan [id number] w/ hx of depression, remote tob use, HTN, LVH w/ DD, DM T2, gout, BPH , & PAF on NOAC who presented to the ED, 02/11/2018, w/ a 3-4 day c/o SOB, fatigue, & palpitations, as well as, assoc abd discomfort & was again in AF w/ RVR, despite adherence to his OP med regimen, that improved following the administration of IV metoprolol and IV verapamil, but who was also discovered to have new T-wave abnormalities on his ECG, evidence of possible community- acquired PNA, and possible cholecystitis. Recommendations: * Continue on telemetry, follow-up troponins, follow-up ECGs. * Continue on outpatient metoprolol succinate 50 mg daily. * Continue on diltiazem 3 times daily added 02/11/2018. * Continue empiric antimicrobial therapy. * Follow-up cultures. * Repeat CXR. * Repeat echocardiogram to reassess LV function, degree of LVH, degree of diastolic dysfunction, etc. * Consider abdominal ultrasound to evaluate for early cholecystitis, as per radiology. * DVT prophylaxis being addressed by anticoagulation for his AF. Further recommendations will follow, Thank you. Consult Acknowledgment - Thank you for your consult request.
--- NOTE | 2018-02-12 11:29 | ULTRASOUND REPORT ---
EXAMINATION: US ABDOMEN LIMITED CLINICAL INFORMATION: 83-year-old male with elevated liver function tests. Suspected gallbladder disease. COMPARISON: CT of the abdomen and pelvis done without contrast on 02/11/2018. TECHNIQUE: Real-time imaging of the right upper quadrant abdominal viscera. FINDINGS: PANCREAS: Nonvisualized due to overlying bowel gas, accordingly not evaluated. LIVER: The liver is suboptimally visualized, shows mild diffuse heterogeneous echotexture, consistent with diffuse liver disease. There is suggestion of surface nodularity present. Multiple intrahepatic cystic changes are noted within both lobes of the liver, similar to prior CT study. Measures 4.6 x 3.6 x 4.0 cm on the right and the largest on the left measures 2.1 x 2.0 x 2.4 cm. There is no intrahepatic biliary ductal dilatation present. GALLBLADDER: The gallbladder is physiologically distended without evidence of stones, polyps, wall thickening or pericholecystic fluid. Gallbladder sludge is present. COMMON BILE DUCT: Normal in caliber measuring 0.3 cm in diameter. RIGHT KIDNEY: Multiple cortical cysts are noted at the midpole, measures 1.7 to 2.4 cm at their maximum dimension. No hydronephrosis or renal calculi. The kidney measures 10.5 cm. cm in maximum dimension. An echogenic focus with acoustic shadowing noted at mid anterior cortex may represent a small parenchymal calcification. FREE FLUID: None IMPRESSION: 1. Suboptimal visualization of the pancreas and limited visualization of the liver. The sonographic features of the liver are suggestive of diffuse liver disease with superimposed multiple cystic lesions, as described above. 2. Echogenic bile is noted within the gallbladder, otherwise no sonographic evidence of any gallbladder disease identified. There is no sonographic evidence of biliary obstruction seen.
[2018-02-12 14:31] VITALS: BP 110/60; BP 122/60
--- NOTE | 2018-02-12 16:16 | Discharge Summary ---
Visit Information Visit Dates Admission Date: 02/11/18 Discharge Date: 02/13/18 Hospital Course Course Attending Physician: Lauren Lucas MD Primary Care Physician: Phyllis Merchant MD Hospital Course: Mr. Quinones is a 83-year-old male with past medical history of hypertension, type 2 diabetes mellitus, hyperlipidemia, paroxysmal atrial fibrillation on Eliquis, BPH, depression, gout,previous history of prostate cancer is brought in by son with reports of being weak, fatigued and not quite himself for 3 days prior to presentation. His heart rate as measured at home was in 130s and also at times in 150s. Heart rate has been running high in the 130s to 140s for last 3-4 days prior to admission . Vitals on presentation is temperature was 96.2, pulse was 144, respiration of 18 , blood pressure of 134/99, he was saturating 93% on room air. Labs white count of 12.2, H/H of 16.9/51.2, platelet of 198. PT of 29.8, INR of 2.71, d-dimer of 289. Sodium of 141, potassium of 4.7, anion gap of 15, bicarbonate of 19, BUN/ creatinine of 32/1.2 mod total bilirubin of 2.0, ALT of 73, AST of 48, alkaline phosphatase of 137. Total protein of 6.0, albumin of 3.2. EKG showed atrial fibrillation with a rate of 159, QTC of 489, T-wave inversion in V4, V5, V1 present on the previous EKG. His last admission was in May 2017, was treated for paroxysmal atrial fibrillation with RVR and was discharged on Eliquis 5 mg twice daily. Below is a summarry of the care he received under us. Problem list along with assessment and plan 1. Atrial fibrillation with rapid ventricular rate The patient was admitted to the telemetry service. A calcium channel bernardo was started every 6 hours. We obtained a target heart rate of less than 110. Etiology of rapid ventricular rate was unclear. Patient was discharged home a calcium channel bernardo and advised to continue beta bernardo. #2 Heart failure with preserved EF. Patient was aggressively diuresed with IV Lasix. We obtained a cardiology consultation who recommended the patient should be on a beta bernardo and a calcium channel bernardo. The patient was ruled out with serial troponins and EKGs. Patient remained asymptomatic and did not complain of any chest pain. He he was discharged on 40mg furosemide daily. The patient was also prescribed a calcium channel bernardo Cardizem extended release 120 mg. An echocardiogram was also ordered. #3 Elevated ALT, elevated bilirubin and alkaline phosphatase. CT abdomen and pelvis showed distended gallbladder, however there was no evidence of acute inflammation, gall stones. Patient had an abdominal ultrasound on 02/12/2018 the was normal. Results of which have been attached to the bottom of this report. #4 History of gout. Patient was continued on allopurinol. #5 History of BPH. Patient's medications were continued. #6 Depression. Patient was continued on home medications sertraline. #7 DM-2 Patient's last hemoglobin A1c was 6.4. He was covered with a NovoLog sliding scale. Consistent carbohydrate diet was provided. Patient was a full code. DVT prophylaxis with Eliquis. Allergies: Coded Allergies: NO KNOWN ALLERGIES (01/13/16) Pertinent Lab Results: SERVICE DATE: 02/11/18 EXAM TYPE: RAD - XRY-PORTABLE CHEST XRAY EXAMINATION: XR PORTABLE CHEST CLINICAL INFORMATION: Wheezing with rapid A. fib. COMPARISON: Chest radiograph 05/24/2017. TECHNIQUE: Portable frontal view of the chest was obtained. FINDINGS: There is right basilar opacity. The lungs are otherwise clear. The heart is enlarged. The pulmonary vasculature is normal. There are atherosclerotic changes of the thoracic aorta. Minimal rightward shift of the mediastinum. No acute osseous finding. IMPRESSION: Right basilar opacity which favors atelectasis given the minimal rightward mediastinal shift. Superimposed pleural effusion or pneumonia is not excluded. Mild cardiomegaly. DICTATED BY: Bryant Georges MD DATE/TIME DICTATED:02/11/182114 SERVICE DATE: 02/11/18 EXAM TYPE: CAT - CT ABD & PELVIS W/O IV CONTRAS EXAMINATION: CT ABDOMEN AND PELVIS WITHOUT CONTRAST CLINICAL INFORMATION: Altered mental status. Elevated bilirubins and LFTs. COMPARISON: None TECHNIQUE: Multidetector volumetric imaging was performed from the superior aspect of the liver through the pubic symphysis. Sagittal and coronal reformatted images were obtained on the technologist's workstation. DLP: 1138 mGy-cm FINDINGS: LUNG BASES: Moderate right and small left pleural effusions with adjacent basilar atelectasis. PERITONEAL CAVITY: Small volume of ascites. LIVER, GALLBLADDER, AND BILIARY TREE: There are a few scattered hypodense hepatic lesions, including a lobulated 3.9 cm lesion within the superior aspect of segments 8 and 4, favored to represent cysts. No convincing suspicious hepatic mass lesion. No significant biliary ductal dilatation. The gallbladder is distended, with questionable mural indistinctness. No discrete gallstones demonstrated. PANCREAS: Unremarkable. SPLEEN: Unremarkable. ADRENAL GLANDS: Unremarkable. KIDNEYS AND URETERS: There is a 13.7 cm cyst without suspicious features off of the left kidney. No hydronephrosis. There is a tiny punctate calculus in the lower pole of the left kidney. No other renal or ureteral calculi. BLADDER: Partially distended bladder without focal abnormality. GASTROINTESTINAL TRACT: Bowel gas pattern is nonobstructive. No evidence of acute bowel inflammation. There is colonic diverticulosis without evidence of diverticulitis. The appendix is unremarkable. ABDOMINAL WALL: No significant hernia is appreciated. LYMPH NODES: No bulky adenopathy demonstrated. VASCULAR: Scattered atherosclerotic disease including coronary artery calcification. PELVIC VISCERA: Ascites tracks into the pelvis. No significant prostatomegaly. Seminal vesicles are unremarkable. OSSEOUS STRUCTURES: No acute osseous abnormalities. Multilevel degenerative changes of the spine. IMPRESSION: 1. Equivocal mural indistinctness of a distended gallbladder without discrete gallstones demonstrated. Consider correlation with ultrasound to evaluate for early cholecystitis. This is a borderline finding. 2. No biliary ductal dilatation. 3. Moderate right and small left pleural effusions. Adjacent basilar atelectasis. 4. Small volume of ascites. 5. A few hypodense hepatic lesions, the largest of which is consistent with a hepatic cyst. 6. Tiny punctate nonobstructing calculus in the lower pole of the left kidney. A large simple cyst extends from the left [id number] kidney. 7. Diverticulosis without evidence of diverticulitis. 8. Other findings as above. DICTATED BY: Pedro Gerber MD SERVICE DATE: 02/12/18 EXAM TYPE: US - US-LIMITED ABDOMEN EXAMINATION: US ABDOMEN LIMITED CLINICAL INFORMATION: 83-year-old male with elevated liver function tests. Suspected gallbladder disease. COMPARISON: CT of the abdomen and pelvis done without contrast on 02/11/2018. TECHNIQUE: Real-time imaging of the right upper quadrant abdominal viscera. FINDINGS: PANCREAS: Nonvisualized due to overlying bowel gas, accordingly not evaluated. LIVER: The liver is suboptimally visualized, shows mild diffuse heterogeneous echotexture, consistent with diffuse liver disease. There is suggestion of surface nodularity present. Multiple intrahepatic cystic changes are noted within both lobes of the liver, similar to prior CT study. Measures 4.6 x 3.6 x 4.0 cm on the right and the largest on the left measures 2.1 x 2.0 x 2.4 cm. There is no intrahepatic biliary ductal dilatation present. GALLBLADDER: The gallbladder is physiologically distended without evidence of stones, polyps, wall thickening or pericholecystic fluid. Gallbladder sludge is present. COMMON BILE DUCT: Normal in caliber measuring 0.3 cm in diameter. RIGHT KIDNEY: Multiple cortical cysts are noted at the midpole, measures 1.7 to 2.4 cm at their maximum dimension. No hydronephrosis or renal calculi. The kidney measures 10.5 cm. cm in maximum dimension. An echogenic focus with acoustic shadowing noted at mid anterior cortex may represent a small parenchymal calcification. FREE FLUID: None IMPRESSION: 1. Suboptimal visualization of the pancreas and limited visualization of the liver. The sonographic features of the liver are suggestive of diffuse liver disease with superimposed multiple cystic lesions, as described above. 2. Echogenic bile is noted within the gallbladder, otherwise no sonographic evidence of any gallbladder disease identified. There is no sonographic evidence of biliary obstruction seen. DICTATED BY: Corazon Mcbride MD Disposition Summary Disposition Principal Diagnosis: 1. Atrial fibrillation with rapid ventricular rate Additional Diagnosis: 2. Tachycardia induced cardiomyopathy 3. Transaminitis Discharge Disposition: SNF Discharge Instructions General Discharge Information Code Status: Full Code Patient's Diet: Consistent Carbohydrate Patient's Activity: As Tolerated Follow-Up Instructions/Appts: Please follow up with you PCP withing Seven days Please follow up with the [facility] withing seven days. Medications at Discharge Discharge Medications: Continue taking these medications: Allopurinol (Allopurinol) 300 MG TABLET 1 Tablet ORAL DAILY Comments: Last Taken:02/13/18 Time: 10:00 AM Metoprolol Succ XL (Toprol Xl) 50 MG TAB 1 Tablet ORAL DAILY Comments: Last Taken:02/13/18 Time: 11:30 AM Tamsulosin HCl (Tamsulosin HCl) 0.4 MG CAP.ER.24H 1 Capsule ORAL DAILY Comments: Last Taken:02/12/18 Time: 9:00 AM Finasteride (Finasteride) 5 MG TABLET 1 Tablet ORAL DAILY Comments: Last Taken:02/12/18 Time: 9:00 AM Sertraline HCl (Sertraline HCl) 50 MG TABLET 1 Tablet ORAL DAILY Comments: Last Taken:02/13/18 Time: 10:00 AM Multiple Vitamin (Multivitamins) 1 EACH TABLET 1 Tablet ORAL DAILY Comments: Last Taken:02/13/18 Time: 10:00 AM Apixaban (Eliquis) 5 MG TABLET 1 Tablet ORAL TWICE DAILY Qty = 30 Comments: Last Taken:02/13/18 Time: 10:00 AM Solifenacin Succinate (Vesicare) 5 MG TABLET 1 Tablet ORAL DAILY Qty = 90 Comments: Last Taken:02/12/18 Time: 9:00 AM Start taking the following new medications: Diltiazem HCl (Diltiazem 12HR ER) 120 MG CAP.ER.12H 1 Capsule ORAL DAILY Qty = 30 No Refills Instructions: . Furosemide (Furosemide) 40 MG TABLET 1 Tablet ORAL DAILY Qty = 30 No Refills Instructions: . Comments: Last Taken:02/13/18 Time: 8:00 AM Copies To: Annelise MAJOR,Marcin Long; Shonda MAJOR,Phyllis Sher
[2018-02-12 23:00] VITALS: BP 112/76
[2018-02-13 07:01] VITALS: BP 102/70
--- NOTE | 2018-02-13 07:29 | PN- Housestaff ---
See Addendum Subjective Follow-up For: Johnson sorto with rapid ventricular rate, CHF Tele-Events Since Last Visit: Johnson sorto, 80s Subjective: No overnight events. Patient feels well this morning and has no chest pain or shortness of breath. Review of Systems Constitutional: Reports: no symptoms. EENTM: Reports: no symptoms. Cardiovascular: Reports: no symptoms. Respiratory: Reports: no symptoms. Gastrointestinal: Reports: no symptoms. Genitourinary: Reports: no symptoms. Musculoskeletal: Reports: no symptoms. Skin: Reports: no symptoms. Neurological/Psychological: Reports: no symptoms. Hematologic/Endocrine: Reports: no symptoms. Immunologic/Allergic: Reports: no symptoms. Objective Last 24 Hrs of Vital Signs/I&O Vital Signs Date Time Temp Pulse Resp B/P B/P Pulse O2 O2 Flow FiO2 Mean Ox Delivery Rate 02/13 0701 97.5 89 20 102/70 91 02/13 0645 85 102/70 02/13 0000 94 Nasal 2.0L Cannula 02/12 2300 98.3 85 23 112/76 94 02/12 2154 91 110/60 02/12 1431 98.1 91 20 110/60 93 Nasal Cannula 02/12 1256 120/66 02/12 0800 94 Nasal 2.0L Cannula Intake & Output 02/13 0800 02/13 0000 02/12 1600 Intake Total 500 400 Output Total 2850 4200 Balance -2350 -3800 Intake, Oral 500 400 Number 1 Bowel Movements Output, Urine 2850 4200 Patient 90.718 kg Weight Physical Exam General Appearance: Alert, Oriented X3, Cooperative, No Acute Distress Cardiovascular: Regular Rate, Normal S1, Normal S2 Lungs: Clear to Auscultation Abdomen: Normal Bowel Sounds, Soft, No Tenderness Extremities: 2+ pitting edema Current Medications: Current Medications Sig/John Start time Last Medication Dose Route Stop Time Status Admin Allopurinol 300 MG DAILY 02/12 900 AC 02/12 PO 09 Apixaban 5 MG BID 02/12 900 AC 02/12 PO 215 Azithromycin 250 MG DAILY 02/12 915 DC PO 02/16 901 Ceftriaxone Sodium 1,000 MG DAILY 02/12 915 DC IV 02/16 901 Diltiazem HCl 30 MG Q8 02/12 600 AC 02/13 PO 06 Finasteride 5 MG DAILY 02/12 900 AC 02/12 PO 900 Furosemide 40 MG 7:30 AM, & 4:30 PM 02/12 0730 AC 02/12 IV 1741 Metoprolol Succinate 50 MG DAILY 02/12 900 AC 02/12 PO 903 Multivitamins 1 TAB DAILY 02/12 900 AC 02/12 PO 902 Oxybutynin Chloride 5 MG DAILY 02/12 900 AC 02/12 PO 900 Sertraline HCl 50 MG DAILY 02/12 900 AC 02/12 PO 902 Tamsulosin HCl 0.4 MG DAILY 02/12 900 AC 02/12 PO 900 Last 24 Hrs of Lab/Cristofer Results Last 24 Hrs of Labs/Mics: Laboratory Tests 02/13/1845: Sodium Pending, Potassium Pending, Chloride Pending, Carbon Dioxide Pending, Anion Gap Pending, BUN Pending, Creatinine Pending, BUN/Creatinine Ratio Pending , Total Bilirubin Pending, Direct Bilirubin Pending, AST Pending, ALT Pending, Alkaline Phosphatase Pending, Total Protein Pending, Albumin Pending, CBC w Diff Pending, WBC Pending, RBC Pending, Hgb Pending, Hct Pending, MCV Pending, MCH Pending, MCHC Pending, RDW Pending, Plt Count Pending, MPV Pending 02/12/1815: Anion Gap 13, Estimated GFR 58 L, Glucose 120 H, Calcium 8.9, Phosphorus 5.0 H, Magnesium 1.7, Total Bilirubin 1.5 H, Direct Bilirubin 0.5 H, AST 40, ALT 71, Alkaline Phosphatase 135 H, Troponin I < 0.01, Albumin 3.0 L, CBC w Diff NO MAN DIFF REQ, RBC 5.44, MCV 93.2, MCH 30.3, MCHC 32.5 L, RDW 18.2 H, MPV 9.2, Gran % 79.7 H, Lymphocytes % 13.3 L, Monocytes % 6.1, Eosinophils % 0.7, Basophils % 0.2, Absolute Granulocytes 10.3 H, Absolute Lymphocytes 1.7, Absolute Monocytes 0.8 H, Absolute Eosinophils 0.1, Absolute Basophils 0 Assessment/Plan Assessment: Mr. Quinones is a 83 yo primarily Monegasque speaking male with h/o paroxysmal Afib ( diagnosed May 2017) on Eliquis, HTN, diet controlled diabetes, gout, depression , is brought in for 3-day h/o increasing fatigue, weakness and exertional dyspnea. Problem list: 1. Atrial fibrillation with rapid ventricular rate 2. Tachycardia induced cardiomyopathy 3. Transaminitis #Atrial fibrillation with rapid ventricular rate/Tachycardia induced cardiomyopathy: Patient presented with atrial fibrillation and rapid ventricular rate. Rates are now 80-100, better controlled. Etiology of the rapid ventricular rate is unclear at this time. -Continue diltiazem 30 mg every 8 hours -Continue metoprolol 50 mg daily -Cardiology recommendations appreciated -TTE -Daily weights, strict I's and O's -Consider further diuresis #Transaminitis: Patient presented with elevated alkaline phosphatase and bilirubin and CT abdomen/pelvis shows questionable cholecystitis. He does not have abdominal pain though. Transaminitis is resolving and ultrasound did not show any abnormalities. -CTM #Chronic medical problems: -Continue other home medications DVT prophylaxis with apixaban CHF diet Full code Problem List: 1. Rapid atrial fibrillation Pain Ratin Pain Location: no Pain Goal: Remain pain free Pain Plan: see a/p Tomorrow's Labs & Rationales: no
[2018-02-13 07:35] LABS: ABSOLUTE BASOPHIL COUNT 0 /CUMM (0.0-0.2); ABSOLUTE EOSINOPHIL COUNT 0.2 /CUMM (0.0-0.7); ABSOLUTE GRANULOCYTE CT 7.6 /CUMM (1.4-6.5); ABSOLUTE LYMPH COUNT 1.3 /CUMM (1.2-3.4); ABSOLUTE MONOCYTE COUNT 0.8 /CUMM (0.10-0.60); BASOPHIL % 0.5 % (0.0-2.0); EOSINOPHIL % 1.8 % (0-5); GRANULOCYTE % 76.6 % (42.2-75.2); HEMATOCRIT 49.1 % (42-52); MEAN CORPUSCULAR HGB 30.5 PG (27.0-31.0); MEAN CORPUSCULAR VOLUME 92.6 FL (80.0-94.0); MEAN PLATELET VOLUME 8.8 FL (7.4-10.4); PLATELET COUNT 166 /CUMM (130-400); RBC DISTRIBUTION WIDTH 17.6 % (11.5-14.5); RED BLOOD CELL CT 5.31 /CUMM (4.70-6.10); WHITE BLOOD CELL COUNT 9.9 /CUMM (4.8-10.8)
[2018-02-13 08:00] VITALS: BP 110/70
[2018-02-13] MEDS ORDERED: CARDIZEM30 M1 PO (08:56)
[2018-02-13] MEDS ORDERED: FUROSEMIDE40 M1 PO ×2 (08:56→11:58)
--- NOTE | 2018-02-13 08:57 | Patient Discharge Instructions ---
Discharge Instructions General Discharge Information You were seen/treated for: Atrial fibrillation with rapid ventricular rate, congestive heart failure Watch for these problems: Fever, chest pain, shortness of breath Special Instructions: Please take all medications as directed. Please follow-up with primary care and cardiology Diet Continue normal diet: Yes Activity Full Activity/No Limits: Yes Acute Coronary Syndrome Inclusion Criteria At DC or during hospital stay patient has or had the following: ACS DIAGNOSIS No Discharge Core Measures Meds if any: Prescribed or Continued at Discharge Meds if any: NOT Prescribed or Continued at Discharge Congestive Heart Failure Inclusion Criteria At DC or during hospital stay patient has or had the following: CHF DIAGNOSIS Yes Discharge Core Measures Meds if any: Prescribed or Continued at Discharge Meds if any: NOT Prescribed or Continued at Discharge Cerebrovascular accident Inclusion Criteria At DC or during hospital stay patient has or had the following: CVA/TIA Diagnosis No Discharge Core Measures Meds if any: Prescribed or Continued at Discharge Meds if any: NOT Prescribed or Continued at Discharge Venous thromboembolism Inclusion Criteria VTE Diagnosis No VTE Type NONE VTE Confirmed by (Test) NONE Discharge Core Measures - Per Current guidelines, there needs to be overlap - treatment for the first 5 days of Warfarin therapy. - If discharged on Warfarin prior to 5 days of - overlap therapy, the patient will need to be - assessed for post discharge needs including - *Post discharge parental anticoagulation - *Warfarin and/or parental anticoagulation education - *Follow up date to check INR post discharge At least 5 days overlap therapy as Inpatient No Meds if any: Prescribed or Continued at Discharge Note: Overlap Therapy is Warfarin and Anticoagulant Meds if any: NOT Prescribed or Continued at Discharge
[2018-02-13 09:50] VITALS: BP 94/50
[2018-02-13] MEDS ORDERED: DILTIAZEM 12HR120 MG PO ×2 (10:10→11:58)
[2018-02-13 11:15] VITALS: BP 96/60
[2018-02-13 13:54] VITALS: BP 96/70
--- NOTE | 2018-02-13 18:18 | ECHOCARDIOGRAM REPORT ---
ELEUTERIO LOVE Age: 83 : 1935 Gender: M Exam Date: 02/12/2018 11:03 Exam Location: 1 [address] Ht (in): 67 Wt (lb): 199 BSA: 2.09 BP: 124 / 80 Ordering Physician: Fritz Potts MD Referring Physician: Fritz Potts MD Technologist: Charles Cardoza [facility] Room Number: 180-1 Indications: AFIB/FLUTTER Rhythm: Atrial fibrillation Technical Quality: Fair FINDINGS Left Ventricle Normal size left ventricle. Mild concentric left ventricular hypertrophy. Moderately reduced global left ventricular systolic function. Normal left ventricular ejection fraction visually estimated at 40-45%. Right Ventricle Normal right ventricular size and function. Right Atrium Mild right atrial size. Left Atrium Mild left atrial dilatation. Interatrial septal aneurysm. Mitral Valve Mild mitral annular calcification. Mitral valve mildly thickened. Mild to moderate mitral regurgitation. Aortic Valve Trileaflet aortic valve. No aortic stenosis. Mild aortic regurgitation. Tricuspid Valve Structurally normal tricuspid valve. Mild to moderate tricuspid regurgitation. Borderline pulmonary hypertension. Right ventricular systolic pressure estimated to be at upper limits of normal at 35 mmHg. Pulmonic Valve Pulmonic valve not well visualized, grossly normal. Trace pulmonic regurgitation. Pericardium No pericardial effusion. Great Vessels Normal size aortic root. Mildly dilated proximal ascending aorta (tube). Dilated inferior vena cava. CONCLUSIONS Normal size left ventricle. Mild concentric left ventricular hypertrophy. Moderately reduced global left ventricular systolic function. Normal left ventricular ejection fraction visually estimated at 40- 45%. Normal right ventricular size and function. Mild right atrial size. Mild left atrial dilatation. Interatrial septal aneurysm. Mild to moderate mitral regurgitation. Mild aortic regurgitation. Mild to moderate tricuspid regurgitation. Borderline pulmonary hypertension. Trace pulmonic regurgitation. Mildly dilated proximal ascending aorta (tube). Dilated inferior vena cava. Marcin Castelan M.D. (Electronically Signed) Final Date: 13 February 2018 18:17 MEASUREMENTS (Male / Female) Normal Values 2D ECHO LV Diastolic Diameter PLAX 4.9 cm 4.2 - 5.9 / 3.9 - 5.3 cm LV Systolic Diameter PLAX 3.5 cm 2.1 - 4.0 cm LV Fractional Shortening PLAX 28.6 % 25 - 46 % LV Ejection Fraction 2D Teich 54.9 % IVS Diastolic Thickness 1.2 cm LVPW Diastolic Thickness 1.2 cm LV Relative Wall Thickness 0.5 RV Internal Dim ED PLAX 3.5 cm 1.9 - 3.8 cm LVOT Diameter 2.1 cm Aortic Root Diameter 3.4 cm LA Systolic Diameter LX 4.3 cm 3.0 - 4.0 / 2.7 - 3.8 cm LA Volume 55.0 cm 18 - 58 / 22 - 52 cm Ascending Aorta Diameter 4.2 cm DOPPLER AV Peak Velocity 101.0 cm/s AV Peak Gradient 4.1 mmHg AV Mean Velocity 72.0 cm/s AV Mean Gradient 2.0 mmHg AV Velocity Time Integral 20.2 cm AI Deceleration [place] 179.0 cm/s AI Peak Velocity 403.0 cm/s AI Pressure Half Time 659.0 ms AI Peak Gradient 65.0 mmHg LVOT Peak Velocity 50.4 cm/s LVOT Peak Gradient 1.0 mmHg LVOT Mean Velocity 30.4 cm/s LVOT Mean Gradient 0.0 mmHg LVOT Velocity Time Integral 9.2 cm LVOT Stroke Volume 31.7 cm AV Area Cont Eq vti 1.6 cm AV Area Cont Eq pk 1.7 cm MV Peak Velocity 104.0 cm/s MV Peak Gradient 4.3 mmHg MV Mean Velocity 62.3 cm/s MV Mean Gradient 2.0 mmHg Mitral E Point Velocity 88.4 cm/s Mitral A Point Velocity 24.2 cm/s Mitral E to A Ratio 3.7 MV PHT Velocity 106.0 cm/s MV Deceleration [place] 339.0 cm/s MV Pressure Half Time 93.8 ms MV Area PHT 2.3 cm MV Deceleration Time 155.0 ms MR Peak Velocity 507.0 cm/s MR Peak Gradient 102.8 mmHg MR ERO PISA 0.2 cm MR Regurgitant Volume PISA 31.8 cm TR Peak Velocity 273.0 cm/s TR Peak Gradient 29.8 mmHg Right Atrial Pressure 5.0 mmHg Pulmonary Artery Systolic Pressu 34.8 mmHg Right Ventricular Systolic Press 34.8 mmHg PV Peak Velocity 53.8 cm/s PV Peak Gradient 1.2 mmHg PV Mean Velocity 41.9 cm/s PV Mean Gradient 1.0 mmHg PV Velocity Time Integral 10.8 cm LV E' Lateral Velocity 5.9 cm/s Mitral E to LV E' Lateral Ratio 14.9 LV E' Septal Velocity 5.3 cm/s Mitral E to LV E' Septal Ratio 16.8
== END 2018-02-13 14:55 | disposition home health service (06) | DRG 308 ==
LOC: ERH 19:23 → 1NO 21:25 → ERHI 21:25 → ENRESERV 21:50 → CANRESERV 21:50 → ERHI 22:46 → EDBEDREQ 22:48 → EDBEDREQTM 22:48 → ENRESERV 22:59 → 1NO 23:39 → ENPENDDIS 02-13 11:58 → 1NO 02-13 14:55
PROVIDERS: Internal Medicine
DX: I48.0 Paroxysmal atrial fibrillation (principal); I50.33 Acute on chronic diastolic (congestive) heart failure; Z79.01 Long term (current) use of anticoagulants; N40.0 Benign prostatic hyperplasia without lower urinary tract symptoms; Z85.46 Personal history of malignant neoplasm of prostate; I11.0 Hypertensive heart disease with heart failure; E80.7 Disorder of bilirubin metabolism, unspecified; R74.0 Nonspecific elevation of levels of transaminase and lactic acid dehydrogenase [LDH]; E11.9 Type 2 diabetes mellitus without complications; F32.9 Major depressive disorder, single episode, unspecified; M10.9 Gout, unspecified; I42.9 Cardiomyopathy, unspecified; R00.0 Tachycardia, unspecified
CPT/HCPCS: 1NSP; 36415; 36592; 71045; 74176; 81001; 82436; 87040; 87070; 87086; 87449; 87450; 93005; 93010; 93306; 97116-GO; 97161-GP; 97530-GO; J0456; J0696; J1940; J7040

== ENCOUNTER → 2018-04-12 | Day surgery (SDC) | payer OTHER, MEDICARE ==
[~2018-04-12] MED LIST changes: +CARDIZEM30 M1 PO; +DILTIAZEM 12HR120 MG PO; +FUROSEMIDE40 M1 PO; +VESICARE5 M1 PO
--- NOTE | 2018-04-12 14:38 | Operative Report ---
Operative/Inv Procedure Report Surgery Date: 04/12/18 Name of Procedure: Cataract extraction with intraocular lens implantation left eye Pre-Operative Diagnosis: Age-related cataract left eye Post-Operative Diagnosis: Same Estimated Blood Loss: none Surgeon/Cloth Examiner: Artis MAJOR,Dustin Ellsworth Anesthesia: local monitored anesthesi Complications: None Operative/Procedure Note Note: Preoperatively the patient was noted to have 20/30 vision in the left eye with a decrease with glare testing down to 20/400. The risks, benefits, and alternatives to surgery were discussed at length with the patient. Informed consent was obtained. The patient was brought to the operating room where the left eye was prepped and draped in the normal sterile fashion. A speculum was placed on the left eye with good exposure. A stab incision was made using a paracentesis blade. Intracameral lidocaine was placed. Viscoelastic was used to form the anterior chamber. A clear corneal incision was made using keratome blade. A continuous curvilinear capsulorrhexis was made using a cystotome needle followed by Utrata forceps. There was no extension of the rhexis. Hydrodissection was performed using balanced salt solution. The cataract was removed using a stop and chop technique. Residual cortex was removed using coaxial irrigation and aspiration. The capsule was polished using irrigation and aspiration and the posterior capsule was cleaned using a balanced salt solution jet. There was no residual lens material inside the eye. The capsular bag was reformed using viscoelastic. An intraocular lens PCBOO of power 24.5 was verified and confirmed. It was loaded into an injector and injected into the eye. The lens was placed entirely within the capsular bag. Viscoelastic was evacuated using irrigation and aspiration. The wounds were stromally hydrated and the eye filled to physiologic pressure using balanced salt solution. Intracameral cefuroxime was placed. Speculum was removed and a shield was placed on the eye. The patient was brought to the recovery area without incident. Instructions were given to follow-up the next day for routine postoperative care.
== END ==
LOC: STS 04:32
DX: H25.9 Unspecified age-related cataract (principal); I10 Essential (primary) hypertension; M10.9 Gout, unspecified; I48.91 Unspecified atrial fibrillation; Z79.01 Long term (current) use of anticoagulants
CPT/HCPCS: J2250; V2632

== ENCOUNTER → 2018-05-15 | Day surgery (SDC) | payer OTHER, MEDICARE ==
[~2018-05-15] VITALS: Ht 167.6 cm; Wt 72.6 kg
--- NOTE | 2018-05-15 09:15 | Operative Report ---
Operative/Inv Procedure Report Surgery Date: 05/15/18 Name of Procedure: Cataract extraction with intraocular lens implantation right eye Pre-Operative Diagnosis: Age-related cataract right eye Post-Operative Diagnosis: Same Estimated Blood Loss: none Surgeon/Professor Of Rhetoric: Artis MAJOR,Dustin Ellsworth Anesthesia: local monitored anesthesi Complications: None Operative/Procedure Note Note: Preoperatively the patient was noted to have 20/25 vision in the right eye with a decrease with glare testing down to 20/70. The risks, benefits, and alternatives to surgery were discussed at length with the patient. Informed consent was obtained. The patient was brought to the operating room where the right eye was prepped and draped in the normal sterile fashion. A speculum was placed on the right eye with good exposure. A stab incision was made using a paracentesis blade. Intracameral lidocaine was placed. Viscoelastic was used to form the anterior chamber. A clear corneal incision was made using keratome blade. A continuous curvilinear capsulorrhexis was made using a cystotome needle followed by Utrata forceps. There was no extension of the rhexis. Hydrodissection was performed using balanced salt solution. The cataract was removed using a stop and chop technique. Residual cortex was removed using coaxial irrigation and aspiration. The capsule was polished using irrigation and aspiration and the posterior capsule was cleaned using a balanced salt solution jet. There was no residual lens material inside the eye. The capsular bag was reformed using viscoelastic. An intraocular lens [id number] of power 24.0 was verified and confirmed. It was loaded into an injector and injected into the eye. The lens was placed entirely within the capsular bag. Viscoelastic was evacuated using irrigation and aspiration. The wounds were stromally hydrated and the eye filled to physiologic pressure using balanced salt solution. Intracameral cefuroxime was placed. Speculum was removed and a shield was placed on the eye. The patient was brought to the recovery area without incident. Instructions were given to follow-up the next day for routine postoperative care.
== END ==
LOC: STS 01:35
DX: H25.9 Unspecified age-related cataract (principal); I48.91 Unspecified atrial fibrillation; Z79.01 Long term (current) use of anticoagulants; M1A.9XX1 Chronic gout, unspecified, with tophus (tophi); I10 Essential (primary) hypertension
CPT/HCPCS: J2001; J2250; V2632